=== PATIENT | female | born 1990 | race Caucasian/White ===

== ENCOUNTER 2016-09-11 19:47 | Emergency (ER) | payer OTHER ==
--- NOTE | 2016-09-12 07:33 | RAD ---
Exam: Three-view left ankle COMPARISON: None INDICATION: Left ankle pain and swelling, injured playing soccer. FINDINGS: AP, lateral and oblique views of the left ankle were obtained. Prominent soft tissue swelling is seen laterally. No fracture is identified. Ankle mortise is intact. IMPRESSION: Lateral soft tissue swelling, however no acute osseous abnormality is identified within the left ankle.
== END 2016-09-11 20:51 | disposition home or self-care (01) ==
LOC: ED 19:47
DX: S90.02XA Contusion of left ankle, initial encounter (principal); W51.XXXA Accidental striking against or bumped into by another person, initial encounter; Y93.66 Activity, soccer; Y92.322 Soccer field as the place of occurrence of the external cause